=== PATIENT | female | born 1940 | race Caucasian/White ===

== ENCOUNTER 2025-04-15 08:49 | Inpatient (IN) | payer OTHER, MEDICARE, SELFPAY ==
[2025-04-15] VITALS (18 sets, daily range): BP systolic 141–204; BP diastolic 76–121; PULSE 61–84; RESP 16–18; TEMP 36.8–37.1; O2SAT 92–97; BMI 27.1
--- NOTE | 2025-04-15 09:42 | DI.MRI.S_ITS ---
PROCEDURE: MR LUMBAR SPINE WO CON INDICATIONS: lumbar radiculopathy severe pain TECHNIQUE: Noncontrast sagittal T1 spin echo and T2 fast echo, sagittal STIR, and T2 fast spin echo through the lumbar spine. In cases with scoliosis, additional coronal T2 fast spin echo may be performed. COMPARISON: None. FINDINGS: Image quality: Excellent. Alignment and Curvature: Trace anterolisthesis of L4 on L5. Bone Marrow: No lumbar compression fractures. There are bilateral acute or subacute sacral insufficiency fractures with a horizontal S2 component. Suspect possible sacral stenosis just below the level of S1-S2. Spinal Cord: Conus medullaris terminates at the L1-L2 level. Visualized cord demonstrates normal signal and size. Paraspinous Soft Tissues: No paravertebral masses. T12-L1: No canal stenosis or foraminal stenosis. L1-L2: No canal stenosis or foraminal stenosis. L2-L3: Disc bulge. Facet hypertrophy. No canal stenosis or foraminal stenosis. L3-L4: Disc bulge. Facet hypertrophy. No canal stenosis or foraminal stenosis. L4-L5: Trace anterolisthesis. Prominent facet hypertrophy. Moderate canal stenosis. Moderate right foraminal narrowing and mild to moderate left foraminal narrowing. L5-S1: Disc bulge. Facet hypertrophy. No canal stenosis or significant foraminal stenosis. IMPRESSION: 1. Acute or subacute bilateral sacral insufficiency fractures with a horizontal component at the top of S2. 2. There appears to be a degree of sacral canal stenosis just below the level of S1-S2. 3. 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 Dictated by: Juan Antonio Oliva M.D. on 04/15/2025 at 11:02 Approved by: Juan Antonio Oliva M.D. on 04/15/2025 at 11:07
--- NOTE | 2025-04-15 09:47 | ED.BACK ---
HPI - Back Pain/Injury General Chief Complaint: Back Pain/Injury Stated Complaint: Back pain / left hip pain Time Seen by Provider: 04/15/25 09:18 History of Present Illness HPI Narrative: This is an 84-year-old woman who at baseline is healthy independent and ambulates without assistance. Says that she had a fall in early February and over last week or so has been having increasing pain in her low back and left leg. Also having paresthesias in her left leg. No fevers no problems with bowel or bladder control although she says she can not remember when she last had a bowel movement. She has had a visit to urgent care and 2 visits to the [facility] Emergency Department for this. She was discharged from the [facility] Emergency Department this morning and came directly here. The last time she went to would be she came by ambulance, she was brought here by private vehicle by her daughter. I reviewed the notes from the [facility] Emergency Department visit. Patient had a CT of her pelvis that shows osteoarthritis of the right hip and a left hip replacement without apparent complication. She has not been having fevers. She is not immunosuppressed or anticoagulated. Daughter and the patient report that she is at this point immobilized by her pain, unable to get out of bed. Related Data Allergies Allergy/AdvReac Type Severity Reaction Status Date / Time Sulfa (Sulfonamide Allergy Verified 04/15/25 11:28 Antibiotics) Patient History Social History household members: none Exam Initial Vital Signs Initial Vital Signs: Vital Signs Pulse Rate 78 04/15/25 08:55 Pulse Oximetry 94 04/15/25 08:55 vital signs are reviewed, hypertensive Const General: cooperative and No acute distress Other: Unable to sit up independently, complains of significant back pain and leg pain with movement when she is rolled up [facility] Head: normocephalic and atraumatic Cardio Rate: regular rate Rhythm: regular rhythm Heart Sounds: no murmurs Other: Normal sensation to the perineum, normal sphincter tone. Hard stool in the vault does not have a palpable fecal impaction Back/Spine/Pelvis Other: No focal midline tenderness of the thoracic or lumbar spine no step-off some tenderness in the left sacrum. Skin General: no rashes or lesions noted and warm Other: Motor sensation and reflexes are intact in the lower extremities Neuro General: patient alert, patient oriented x3 and moves all extremities Speech: speech normal Extrem Other: Positive straight leg raise, pain with passive range of motion of the left lower extremity Course Orders Ordered: ED Orders 04/15/25 09:42 Consult to Physical Therapy Evaluate & Treat MR lumbar spine wo con Stat 04/15/25 13:25 CBC Auto Diff [Complete Blood Count AUTO DIFF] Stat CMP [Comprehensive Metabolic Panel] Stat Discontinued Medications Acetaminophen (Acetaminophen 325 Mg Tablet) 975 mg PO NOW ONE Stop: 04/15/25 09:43 Last Admin: 04/15/25 09:55 Dose: 975 mg Documented By: MLLobito Reevaluation(s) Reevaluation #1: Discussed findings of the MRI with patient, recommended admission anticipate rehab placement following admission patient is in agreement Consultations Consultation #1: Case discussed with Dr. Tarik Coker, accepts admission Vital Signs Vital signs: Vital Signs - 8 hr 04/15/25 08:55 04/15/25 08:57 04/15/25 08:57 Temperature Pulse Rate 78 77 Respiratory Rate Blood Pressure 203/95 H Pulse Oximetry 94 95 Oxygen Delivery Method 04/15/25 09:00 04/15/25 09:01 04/15/25 09:30 Temperature 98.7 F Pulse Rate 74 80 73 Respiratory Rate 16 Blood Pressure 203/95 H Pulse Oximetry 94 95 94 Oxygen Delivery Method Room Air 04/15/25 10:00 04/15/25 10:01 04/15/25 10:01 Temperature Pulse Rate 84 76 Respiratory Rate Blood Pressure 188/121 H Pulse Oximetry 95 96 Oxygen Delivery Method 04/15/25 10:02 04/15/25 10:02 04/15/25 10:30 Temperature Pulse Rate 69 Respiratory Rate Blood Pressure 188/91 H 179/81 H Pulse Oximetry 96 Oxygen Delivery Method 04/15/25 10:30 04/15/25 11:00 04/15/25 11:01 Temperature Pulse Rate 64 71 Respiratory Rate Blood Pressure 192/86 H Pulse Oximetry 93 94 Oxygen Delivery Method 04/15/25 11:01 04/15/25 11:30 04/15/25 11:30 Temperature Pulse Rate 73 61 Respiratory Rate Blood Pressure 173/76 H Pulse Oximetry 95 92 Oxygen Delivery Method 04/15/25 13:39 04/15/25 13:39 04/15/25 14:00 Temperature Pulse Rate 71 Respiratory Rate Blood Pressure 191/96 H 168/79 H Pulse Oximetry 96 Oxygen Delivery Method 04/15/25 14:00 Temperature Pulse Rate 69 Respiratory Rate Blood Pressure Pulse Oximetry 94 Oxygen Delivery Method MDM - Back Pain/Injury Lab Data Lab results narrative: CBC with diff and CMP are unremarkable 04/15/25 13:25 04/15/25 13:25 Labs: Lab Results 04/15/25 Range/Units 13:25 WBC 7.7 (4.5-11.0) X10^3/uL RBC 4.44 (4.0-5.2) X10^6/uL Hgb 13.1 (12.0-16.0) g/dL Hct 38.2 (36-46) % MCV 86.0 (80-100) fL MCH 29.4 (26-34) PG MCHC 34.2 (30-36) % RDW 12.9 (11.6-14.8) % Plt Count 387 (150-400) X10^3/uL Neut % (Auto) 61.8 (50-75) % Lymph % (Auto) 29.7 (25-40) % Webb % (Auto) 7.0 (3-14) % Eos % (Auto) 0.9 L (2-4) % Baso % (Auto) 0.6 (0-2) % Neut # (Auto) 4800 (9355-8199) /uL Lymph # (Auto) 2300 (3532-5083) /uL Webb # (Auto) 500 (0-900) /uL Eos # (Auto) 100 (0-450) /uL Baso # (Auto) 0 (0-100) /uL Sodium 141 (137-145) mmol/L Potassium 4.0 (3.4-5.1) mmol/L Chloride 107 (98-107) mmol/L Carbon Dioxide 26 (22-32) mmol/L BUN 23 H (7-17) mg/dL Creatinine 0.76 (0.52-1.04) mg/dL Estimated GFR > 60 (>60) mL/min BUN/Creatinine Ratio 30.3 H (6-22) Glucose 82 (70-99) mg/dL Calcium 9.0 (8.4-10.2) mg/dL Total Bilirubin 0.6 (0.2-1.3) mg/dL AST 41 H (14-36) IU/L ALT 23 (<35) IU/L Alkaline Phosphatase 122 (38-126) U/L Total Protein 7.3 (6.3-8.2) g/dL Albumin 4.2 (3.5-5.0) g/dL Globulin 3.1 (1.7-4.1) g/dL Albumin/Globulin Ratio 1.4 (1.0-2.8) Imaging Data Lumbar MRI: Radiologist's Impression: [address] [address] Magnetic Resonance Report Signed Patient: Ana M Gilliland MR#: [id number] : 1940 Acct:[id number] Age/Sex: 84 / F Date of Service: 04/15/25 Loc: ED Accession Number: [id number] Procedure: MR lumbar spine wo con Ordering Provider: Russell Zuniga MD PROCEDURE: MR LUMBAR SPINE WO CON INDICATIONS: lumbar radiculopathy severe pain TECHNIQUE: Noncontrast sagittal T1 spin echo and T2 fast echo, sagittal STIR, and T2 fast spin echo through the lumbar spine. In cases with scoliosis, additional coronal T2 fast spin echo may be performed. COMPARISON: None. FINDINGS: Image quality: Excellent. Alignment and Curvature: Trace anterolisthesis of L4 on L5. Bone Marrow: No lumbar compression fractures. There are bilateral acute or subacute sacral insufficiency fractures with a horizontal S2 component. Suspect possible sacral stenosis just below the level of S1-S2. Spinal Cord: Conus medullaris terminates at the L1-L2 level. Visualized cord demonstrates normal signal and size. Paraspinous Soft Tissues: No paravertebral masses. T12-L1: No canal stenosis or foraminal stenosis. L1-L2: No canal stenosis or foraminal stenosis. L2-L3: Disc bulge. Facet hypertrophy. No canal stenosis or foraminal stenosis. L3-L4: Disc bulge. Facet hypertrophy. No canal stenosis or foraminal stenosis. L4-L5: Trace anterolisthesis. Prominent facet hypertrophy. Moderate canal stenosis. Moderate right foraminal narrowing and mild to moderate left foraminal narrowing. L5-S1: Disc bulge. Facet hypertrophy. No canal stenosis or significant foraminal stenosis. IMPRESSION: 1. Acute or subacute bilateral sacral insufficiency fractures with a horizontal component at the top of S2. 2. There appears to be a degree of sacral canal stenosis just below the level of S1-S2. 3. 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 Dictated by: Juan Antonio Oliva M.D. on 04/15/2025 at 11:02 Approved by: Juan Antonio Oliva M.D. on 04/15/2025 at 11:07 [facility] Narrative Medical decision making narrative: 84-year-old female with a recent ground level fall who has developed low back pain and radicular pain in her left leg since then. She is neurologically intact, does not have cauda equina. Multiple ED visits at another facility and inadequate pain control on arrival here. PT evaluation shows the patient can not walk in fact can not even sit up secondary to severe pain. MRI of the lumbar spine today is remarkable for bilateral sacral insufficiency fractures. Patient will be admitted to the hospitalist service for pain control and anticipate discharge to rehab. Discharge Plan Departure Patient Disposition: Admitted As Inpatient Clinical Impression: Low back pain Qualifiers: Chronicity: acute Back pain laterality: bilateral Sciatica presence: with sciatica Sciatica laterality: sciatica of left side Qualified Code(s): M54.42 - Lumbago with sciatica, left side Bilateral sacral insufficiency fracture Qualifiers: Encounter type: initial encounter Qualified Code(s): M84.48XA - Pathological fracture, other site, initial encounter for fracture
[2025-04-15] MEDS: ACETAMINOPHEN 325 MG TABLET 975 MG PO (09:55)
--- NOTE | 2025-04-15 12:50 | PT.IIE ---
Physical Therapy Inpatient Evaluation/Re-Eval M1 PT/OT-IP Prior Functional Status Start: 04/15/25 12:31 Freq: Status: Active Protocol: Document 04/15/25 12:34 KJ (Rec: 04/15/25 12:50 KJ [id number]) Medical Review Prior Functional Status Medical History Yes Reviewed Mobility and Gait In the past month, the patient has gone from ambulating without an assistive device to using a fww (borrowed from a friend) to being unable to ambulate in the past few days. Prior to a month ago, she ambulated indep without AD. Activities of Daily Prior to a month ago, pt was indep in all ADLs and self Living and IADL's care. Social History Household Members none Living Arrangements House Number of Floors ( One Floor Floors) Home Equipment Front Wheel Walker,Quad Cane Additional Social Sujit lives in [place] Pt has a History Comment boyfriend who is scheduled to have hernia surgery on . M2 PT-IP Current Condition Start: 04/15/25 12:31 Freq: Status: Active Protocol: Document 04/15/25 12:34 KJ (Rec: 04/15/25 12:50 KJ [id number]) Physical Therapy Current Condition Current Condition Evaluation Date 04/15/25 Treatment Diagnosis Impaired mobility Onset Date 03/30/25 M3 PT-IP Subjective Start: 04/15/25 12:31 Freq: Status: Active Protocol: Document 04/15/25 12:34 KJ (Rec: 04/15/25 12:50 KJ [id number]) Subjective Physical Therapy Visit Type Type Initial Evaluation Visit Start Time 11:51 Visit Stop Time 12:29 Notes Discussion with daughter prior to eval while pt was in MRI Physical Therapy Visit Comments Patient Comments Pain has decreased due to pain medication. Daughter states previous to pain medication pt was screaming out every time she moved. Therapy Pain Assessment Pain When Pain Assessed During Mobility Pain Present Pain Present Pain Reported Location Left Lower Back Description Aching Pain Behaviors Facial Grimacing,Wincing Pain Management Re-positioning Techniques M4 PT-IP Mobility and Gait Start: 04/15/25 12:31 Freq: Status: Active Protocol: Document 04/15/25 12:34 KJ (Rec: 04/15/25 12:50 KJ [id number]) PT-Bed Mobility Assessment Rolling Type of Rolling Roll to Right Level of Assist Minimal Assistance Supine to Sit Supine to Sit Maximum Assistance Sit to Supine Sit to Supine Moderate Assistance PT-Transfer Assessment Comments Mobility Comments Pt was unable to maintain upright sitting due to increased pain across the low back. Gait Assessment Comments Gait Comments Pt was unable to ambulate even with assistance and AD. M5 PT-IP Objective Assessments Start: 04/15/25 12:31 Freq: Status: Active Protocol: Document 04/15/25 12:34 KJ (Rec: 04/15/25 12:50 KJ [id number]) Orientation Orientation/Cognition Level of Alertness Alert Orientation Name,Age,Birthday,Month,Date,Year,Day of Week,Place, Situation Language Function No Deficits Noted Ability Memory Description No Deficits Noted Gross Range of Motion Upper Extremity ROM Assessment Within Functional Limits Lower Extremity ROM Assessment Left Impaired Impairments Limited AROM in hips due to pain Strength Upper Extremity Strength Assessment Within Functional Limits Lower Extremity Strength Hip limited due to pain Knee R WFL, L too painful to measure Ankle WFL Comments Strength Comments Pain most significant in passive ext rot L hip Sensation Assessment Comments Sensation Comments Reports numbness and tingling radiating in the LLE M6 PT-IP Treatment Start: 04/15/25 12:31 Freq: Status: Active Protocol: Document 04/15/25 12:34 KJ (Rec: 04/15/25 12:50 KJ [id number]) Physical Therapy Treatment Exercises Exercises Ankle Pumps,Gluteal Sets,Quad Sets Other Treatments Other Treatment Gentle bridging within pain tolerance Performed M7 PT-IP Assessment and Plan Start: 04/15/25 12:31 Freq: Status: Active Protocol: Document 04/15/25 12:34 KJ (Rec: 04/15/25 12:50 KJ [id number]) PT Summary Assessment and Plan Potential Rehabilitation Good Potential Status of Condition Evolving at Evaluation Summary Impairments Pain,ROM,Strength,Bed Mobility,Transfers,Gait Assessment Summary Pt with significant pain even after administration of pain medications, is unable to sit up or care for self at this time. Goals Bed Mobility Goal Independent Transfer Goal Independent Gait Goal Independent Gait Distance 50 Days to Meet Goals 10 Frequency of Treatment Frequency Of Once a Day Treatment Treatment Plan Physical Therapy Bed Mobility Training,Transfer Training,Gait Training, Treatment Plan Therapeutic Exercise Recommendations To Nursing Amount of Assist Mechanical Lift Needed Discharge Recommendations PT Discharge SNF Rehab Recommendations Transportation Needs Stretcher/Ambulance at Discharge
[2025-04-15 13:41] LABS: Add Manual Diff / Slide Review NO; Hematocrit 38.2 % (36-46); Hemoglobin 13.1 g/dL (12.0-16.0); Lymphocytes Absolute Auto 2300 /uL (1100-4500); Mean Corpuscular HGB Conc 34.2 % (30-36); Mean Corpuscular Hemoglobin 29.4 PG (26-34); Mean Corpuscular Volume 86.0 fL (80-100); Platelet Count 387 X10^3/uL (150-400)
[2025-04-15 13:53] LABS: Alanine Aminotransferase 23 IU/L (<35); Albumin 4.2 g/dL (3.5-5.0); Albumin Globulin Ratio 1.4 (1.0-2.8); Alkaline Phosphatase 122 U/L (38-126); Blood Urea Nitrogen 23 mg/dL (7-17); Calcium 9.0 mg/dL (8.4-10.2); Carbon Dioxide 26 mmol/L (22-32); Chloride 107 mmol/L (98-107); Estimated Glomerular Filt Rate > 60 mL/min (>60); Globulin 3.1 g/dL (1.7-4.1); Glucose 82 mg/dL (70-99); HEMOLYSIS < 15 (0-50); Potassium 4.0 mmol/L (3.4-5.1); Sodium 141 mmol/L (137-145); Total Protein 7.3 g/dL (6.3-8.2)
--- NOTE | 2025-04-15 15:09 | PM.HP.1 ---
History of Present Illness History of Present Illness Chief complaint: Back pain / left hip pain Narrative: The patient was a pleasant 84-year-old female who a fall about a month ago with hip pain. This improved over the next several days. She was had lower back pain and some left leg symptoms for the last week to 10 days. This is resulted in multiple visits to the urgent care and emergency department at [facility]. She would normal x-rays and CT scan of the pelvis there. She escalated in terms of her pain medications over sequential visits from hydrocodone up to oxycodone with the addition recently of dexamethasone and a lidocaine patch. For her 3rd ER visit for pain which he would become intractable let her to be essentially bed-bound her daughter is visiting from [place]. She was brought by ambulance to would be, treated with IV medication, and discharged. Her out her daughter drove her to this hospital. ED course: MRI of the LS spine was obtained which revealed sacral insufficiency fracture. [facility] Social History household members: none Smoking Status: Never smoker alcohol intake: current Meds Home Medications and Allergies Home Medications ?Medication ?Instructions ?Recorded ?Confirmed ?Type C 250 mg-E 90 mg-zinc 40 mg-copper 1 cap PO .qday 04/15/25 04/15/25 History 1 mg-lutein 5 [id number] capsule (PreserVision AREDS 2 CO Q-10) acetaminophen 325 mg capsule 650 mg PO Q6H PRN pain 04/15/25 04/15/25 History dexamethasone 2 mg tablet 2 mg PO DAILY 04/15/25 04/15/25 History lidocaine 5 % topical patch 1 patch topical DAILY 04/15/25 04/15/25 History meloxicam 7.5 mg tablet 7.5 mg PO BID 04/15/25 04/15/25 History oxycodone 5 mg tablet 5 mg PO 4XD PRN pain 04/15/25 04/15/25 History Allergies Allergy/AdvReac Type Severity Reaction Status Date / Time Sulfa (Sulfonamide Allergy Verified 04/15/25 11:28 Antibiotics) Review of Systems Review of Systems Narrative: All else reviewed and otherwise unremarkable except as noted in the history and physical. Constipated for 5 days, poor appetite. Exam Vital Signs (past 8 hours): - 04/15/25 08:55 04/15/25 08:57 04/15/25 08:57 Temperature Pulse Rate 78 77 Respiratory Rate Blood Pressure 203/95 H Pulse Oximetry 94 95 Oxygen Delivery Method 04/15/25 09:00 04/15/25 09:01 04/15/25 09:30 Temperature 98.7 F Pulse Rate 74 80 73 Respiratory Rate 16 Blood Pressure 203/95 H Pulse Oximetry 94 95 94 Oxygen Delivery Method Room Air 04/15/25 10:00 04/15/25 10:01 04/15/25 10:01 Temperature Pulse Rate 84 76 Respiratory Rate Blood Pressure 188/121 H Pulse Oximetry 95 96 Oxygen Delivery Method 04/15/25 10:02 04/15/25 10:02 04/15/25 10:30 Temperature Pulse Rate 69 Respiratory Rate Blood Pressure 188/91 H 179/81 H Pulse Oximetry 96 Oxygen Delivery Method 04/15/25 10:30 04/15/25 11:00 04/15/25 11:01 Temperature Pulse Rate 64 71 Respiratory Rate Blood Pressure 192/86 H Pulse Oximetry 93 94 Oxygen Delivery Method 04/15/25 11:01 04/15/25 11:30 04/15/25 11:30 Temperature Pulse Rate 73 61 Respiratory Rate Blood Pressure 173/76 H Pulse Oximetry 95 92 Oxygen Delivery Method 04/15/25 13:39 04/15/25 13:39 04/15/25 14:00 Temperature Pulse Rate 71 Respiratory Rate Blood Pressure 191/96 H 168/79 H Pulse Oximetry 96 Oxygen Delivery Method 04/15/25 14:00 04/15/25 14:30 04/15/25 14:30 Temperature Pulse Rate 69 72 Respiratory Rate Blood Pressure 204/88 H Pulse Oximetry 94 96 Oxygen Delivery Method 04/15/25 15:00 04/15/25 15:00 Temperature Pulse Rate 74 Respiratory Rate Blood Pressure 167/81 H Pulse Oximetry 95 Oxygen Delivery Method Oxygen Delivery Method Room Air Narrative Exam Narrative: NAD, alert and oriented, fluent speech, calm. Normocephalic skull, EOMI, anicteric sclera, symmetric pupils. Oropharynx unremarkable, no droop. Neck supple, midline trachea, no adenopathy. Lungs clear, normal rate and effort. Heart regular, no murmur gallop or rub. Abdomen is soft, non distended and non tender. Extremities are free of edema. Skin is free of rash or lesions. Joints are not swollen or deformed. Judgment appears to be normal. Left leg is normal motor strength was regard to plantar and dorsiflexion as well as extension of the knee. Objective Imaging MRI LS Spine: : Radiologist's impression: Alignment and Curvature: Trace anterolisthesis of L4 on L5. Bone Marrow: No lumbar compression fractures. There are bilateral acute or subacute sacral insufficiency fractures with a horizontal S2 component. Suspect possible sacral stenosis just below the level of S1-S2. Spinal Cord: Conus medullaris terminates at the L1-L2 level. Visualized cord demonstrates normal signal and size. Paraspinous Soft Tissues: No paravertebral masses. T12-L1: No canal stenosis or foraminal stenosis. L1-L2: No canal stenosis or foraminal stenosis. L2-L3: Disc bulge. Facet hypertrophy. No canal stenosis or foraminal stenosis. L3-L4: Disc bulge. Facet hypertrophy. No canal stenosis or foraminal stenosis. L4-L5: Trace anterolisthesis. Prominent facet hypertrophy. Moderate canal stenosis. Moderate right foraminal narrowing and mild to moderate left foraminal narrowing. L5-S1: Disc bulge. Facet hypertrophy. No canal stenosis or significant foraminal stenosis. IMPRESSION: 1. Acute or subacute bilateral sacral insufficiency fractures with a horizontal component at the top of S2. 2. There appears to be a degree of sacral canal stenosis just below the level of S1-S2. 3. 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 Labs 04/15/25 13:25 04/15/25 13:25 Labs: Laboratory Results - last 24 hr 04/15/25 13:25 WBC 7.7 RBC 4.44 Hgb 13.1 Hct 38.2 MCV 86.0 MCH 29.4 MCHC 34.2 RDW 12.9 Plt Count 387 Neut % (Auto) 61.8 Lymph % (Auto) 29.7 [place] % (Auto) 7.0 Eos % (Auto) 0.9 L Baso % (Auto) 0.6 Neut # (Auto) 4800 Lymph # (Auto) 2300 [place] # (Auto) 500 Eos # (Auto) 100 Baso # (Auto) 0 Sodium 141 Potassium 4.0 Chloride 107 Carbon Dioxide 26 BUN 23 H Creatinine 0.76 Estimated GFR > 60 BUN/Creatinine Ratio 30.3 H Glucose 82 Calcium 9.0 Total Bilirubin 0.6 AST 41 H ALT 23 Alkaline Phosphatase 122 Total Protein 7.3 Albumin 4.2 Globulin 3.1 Albumin/Globulin Ratio 1.4 Assessment & Plan Assessment & Plan narrative: 1. Sacral fractures, active. 2. Osteoporosis, active. PLAN: -Pain control with oxy, IV dilaudid, and lidocaine patch. -continue dexamethasone. Anticipate SNF for rehab. Anticipate 2 MN in the hospital, supports inpatient status. Daughter is proxy decision maker. Full resuscitation, confirmed today. Time-Based Coding :: 35 min spent with patient and on the chart (including review of chart, obtaining history, exam, reviewing outside data, placing orders, documenting exam and treatment plan, and counseling patient) on 04/15. Quality MIPS - Admit I confirm the patient?s Advance Care Plan is present, Code status is documented, Surrogate decision maker is in patient?s record [If Yes, STOP here]: Yes MIPS - Meds 'Current medications' to include all prescriptions, [id number] products, herbals, cannabis/cannabidiol products, and vitamin/mineral/dietary (nutritional) supplements. I have utilized all available resources to obtain, update, or review the patient?s current medications. [If Yes, STOP here]: Yes
[2025-04-16 05:32] LABS: Add Manual Diff / Slide Review NO; Hematocrit 36.3 % (36-46); Hemoglobin 12.4 g/dL (12.0-16.0); Lymphocytes Absolute Auto 2100 /uL (1100-4500); Mean Corpuscular HGB Conc 34.1 % (30-36); Mean Corpuscular Hemoglobin 29.5 PG (26-34); Mean Corpuscular Volume 86.4 fL (80-100); Platelet Count 341 X10^3/uL (150-400)
[2025-04-16 05:39] LABS: Blood Urea Nitrogen 22 mg/dL (7-17); Calcium 8.7 mg/dL (8.4-10.2); Carbon Dioxide 26 mmol/L (22-32); Chloride 108 mmol/L (98-107); Estimated Glomerular Filt Rate > 60 mL/min (>60); Glucose 82 mg/dL (70-99); HEMOLYSIS < 15 (0-50); Potassium 4.3 mmol/L (3.4-5.1); Sodium 139 mmol/L (137-145)
--- NOTE | 2025-04-16 07:41 | PM.PN.1 ---
Subjective Subjective Interval history: 04/15: Admitted with sacral fractures and severe pain. S: Pain is reasonably well-controlled while in bed with her oral pain medications. She did some bed exercises with physical therapy but really can not stand up due to escalation of pain. She can move her legs bilaterally and denies any discernible weakness. Exam Vital Signs (past 8 hours): Oxygen Delivery Method Room Air Oxygen Flow Rate 0 Narrative Exam Narrative: NAD, alert and oriented. Fluent speech. Lungs are clear, normal rate and effort. Heart is regular, no murmur gallop or rub. Abdomen is soft, non distended. Extremities are free of edema. Objective Labs 04/16/25 04:46 04/16/25 04:46 Labs: Laboratory Results - last 24 hr 04/15/25 04/16/25 13:25 04:46 WBC 7.7 7.4 RBC 4.44 4.21 Hgb 13.1 12.4 Hct 38.2 36.3 MCV 86.0 86.4 MCH 29.4 29.5 MCHC 34.2 34.1 RDW 12.9 12.5 Plt Count 387 341 Neut % (Auto) 61.8 59.4 Lymph % (Auto) 29.7 28.5 [place] % (Auto) 7.0 7.0 Eos % (Auto) 0.9 L 4.2 H Baso % (Auto) 0.6 0.9 Neut # (Auto) 4800 4400 Lymph # (Auto) 2300 2100 [place] # (Auto) 500 500 Eos # (Auto) 100 300 Baso # (Auto) 0 100 Sodium 141 139 Potassium 4.0 4.3 Chloride 107 108 H Carbon Dioxide 26 26 BUN 23 H 22 H Creatinine 0.76 0.72 Estimated GFR > 60 > 60 BUN/Creatinine Ratio 30.3 H 30.6 H Glucose 82 82 Calcium 9.0 8.7 Total Bilirubin 0.6 AST 41 H ALT 23 Alkaline Phosphatase 122 Total Protein 7.3 Albumin 4.2 Globulin 3.1 Albumin/[facility] 1.4 [facility] Social History household members: none Smoking Status: Never smoker alcohol intake: current Assessment & Plan Assessment & Plan narrative: 1. Sacral fractures, active. 2. Osteoporosis, active. PLAN: -Pain control with oxy, IV dilaudid, and lidocaine patch. -continue dexamethasone. -continue physical therapy and anticipate senior living facility as neck site. The pediatric social worker has been contacted and we will be working with the patient on her preferences for site. Anticipate SNF for rehab. Anticipate 2 [place] in the hospital, supports inpatient status. Daughter is proxy decision maker. Full resuscitation, confirmed today. Time-Based Coding :: [TOTAL MINUTES] spent with patient and on the chart (including review of chart, obtaining history, exam, reviewing outside data, placing orders, documenting exam and treatment plan, and counseling patient) on [DATE].
[2025-04-16 08:00] VITALS: BP 147/83; PULSE 74; RESP 17; TEMP 36.9; O2SAT 93
[2025-04-16] MEDS: LIDOCAINE 5% PATCH 1 EACH TOP (08:17)
--- NOTE | 2025-04-16 10:45 | PT.IPTN ---
Current Diagnoses Other osteoporosis with current pathological fracture, other site, initial encounter for fracture (04/15/25) Physical Therapy Treatment Note M2 PT-IP Current Condition Start: 04/15/25 12:31 Freq: Status: Active Protocol: Document 04/15/25 12:34 KJ (Rec: 04/15/25 12:50 KJ [id number]) Physical Therapy Current Condition Current Condition Evaluation Date 04/15/25 Treatment Diagnosis Impaired mobility Onset Date 03/30/25 M3 PT-IP Subjective Start: 04/15/25 12:31 Freq: Status: Active Protocol: Document 04/16/25 10:41 KJ (Rec: 04/16/25 10:45 KJ [id number]) Subjective Physical Therapy Visit Type Type Treatment Note Visit Start Time 08:41 Visit Stop Time 09:11 Physical Therapy Visit Comments Patient Comments slept well, still has a lot of pain but meds are helping Therapy Pain Assessment Pain When Pain Assessed At Rest Pain Present Pain Present Pain Reported Location Left Lower Back Pain Management Modification of Treatment Techniques M4 PT-IP Mobility and Gait Start: 04/15/25 12:31 Freq: Status: Active Protocol: Document 04/16/25 10:41 KJ (Rec: 04/16/25 10:45 KJ [id number]) PT-Bed Mobility Assessment Rolling Type of Rolling Log Rolling Level of Assist Maximal Assistance M5 PT-IP Objective Assessments Start: 04/15/25 12:31 Freq: Status: Active Protocol: Document 04/15/25 12:34 KJ (Rec: 04/15/25 12:50 KJ [id number]) Orientation Orientation/Cognition Level of Alertness Alert Orientation Name,Age,Birthday,Month,Date,Year,Day of Week,Place, Situation Language Function No Deficits Noted Ability Memory Description No Deficits Noted Gross Range of Motion Upper Extremity ROM Assessment Within Functional Limits Lower Extremity ROM Assessment Left Impaired Impairments Limited AROM in hips due to pain Strength Upper Extremity Strength Assessment Within Functional Limits Lower Extremity Strength Hip limited due to pain Knee R WFL, L too painful to measure Ankle WFL Comments Strength Comments Pain most significant in passive ext rot L hip Sensation Assessment Comments Sensation Comments Reports numbness and tingling radiating in the LLE M6 PT-IP Treatment Start: 04/15/25 12:31 Freq: Status: Active Protocol: Document 04/16/25 10:41 KJ (Rec: 09/18/25 10:45 KJ [id number]) Physical Therapy Treatment Exercises Exercises Ankle Pumps,Gluteal Sets,Quad Sets Other Treatments Other Treatment Instructed pt on bridging, post pelvic tilt in supine. Performed Pt required verbal and physical cuing. Pt had difficult performing a pelvic tilt, she was anticipating pain. M7 PT-IP Assessment and Plan Start: 04/15/25 12:31 Freq: Status: Active Protocol: Document 04/16/25 10:41 KJ (Rec: 04/16/25 10:45 KJ [id number]) PT Summary Assessment and Plan Potential Rehabilitation Good Potential Status of Condition Evolving at Evaluation Summary Impairments Pain Progress Towards Slow Progress due to Pain Goals Treatment Plan Physical Therapy Bed Mobility Training,Transfer Training,Gait Training, Treatment Plan Therapeutic Exercise Other Continue trunk stabilization exercise, progress to Recommendations and single leg raise while maintaining post pelvic tilt. Next Treatment Focus Progress to transfer training when pain is controlled. Recommendations To Nursing Amount of Assist Mechanical Lift Needed Discharge Recommendations PT Discharge SNF Rehab Recommendations
--- NOTE | 2025-04-16 12:06 | CM.DANOTE ---
Initial DCP Assessment Visit Note Reviewed EMR and team rounds for pt's medical status and updates. Pt lives independently at baseline in her own home in [place]. She has a local, supportive dtr, Cinthya, who is very involved in her care and healthcare coordination needs. SNF rehab is recommended for d/c, preference is [facility]. Sent referral for their review. Pending response. Payor: Medicare PCP: charlesanuj [facility] providers Pt is a 84 year-old F who presents to the ED with complaints of severe/worsening pain in her lower back and L-leg. She had a GLF in early February resulting in the start of this pain. CT imaging done at [facility] was negative for any fractures at that time. She's had 2-more ED visits in relation to this pain since she was discharged from the [facility] ED, and now returns to the ED for what she and her dtr describe as immobilizing pain. Pt is unable to tolerate standing/walking/sitting upright in bed without experiencing acute and debilitating pain. MR of the lumbar spine was positive for bilateral sacral fractures. Plan was made to admit for pain control, therapies, and d/c to SNF Rehab at time of d/c. DCP will continue to follow and assist with this transition and referral/coordination with SNF placement. Discharge Planning/Care Management Advanced directive, confirm from FAMILY Start: 04/15/25 16:22 Freq: Q24H Status: Active Protocol: Document 04/15/25 16:22 CEW (Rec: 04/15/25 17:50 CEW [id number]) Advance Directive, confirm on record Time 16:00 Person contacted Patient and dtr Copy received No CM Discharge Assessment Start: 04/15/25 15:11 Freq: Status: Active Protocol: Document 04/16/25 12:03 DPL (Rec: 04/16/25 12:05 DPL [id number]) Discharge Planning Assessment Assigned Discharge DANIEL Luciano Parking Officer Insurance Medicare Advance Directives? Yes Advance Directives No on File History Provided By Family Member,Medical Record Has Patient been No admitted in last 30 days? Prior Living House Arrangements Household Members none Type of Drives own vehicle transporation used prior to admit Independent with ADL Yes 's Is patient alert and Yes oriented? Caregiver for No Another Comment N/A Comment No AD Patient/Family [facility] Facility Preference Barriers to No Discharge Discharge Plan [facility] Facility Transportation Facility Arrangement Referrals Initiated [facility] If patient plan is Yes SNF: Has PASSR been completed? Medicare Choice List Yes Provided Medicare choice list family reviewed on electronic tablet with SNF/HH Preference [facility] Has Agency SNF been Yes contacted Whiteboard Updated Yes in Patient Room with name and ext. # of Manager Of Merchandising Review Status In Process Please Provide Date 04/16/25 Initial DC Assessment Was Performed
--- NOTE | 2025-04-16 16:34 | PT.IPTN ---
Current Diagnoses Other osteoporosis with current pathological fracture, other site, initial encounter for fracture (04/15/25) Physical Therapy Treatment Note M2 PT-IP Current Condition Start: 04/15/25 12:31 Freq: Status: Active Protocol: Document 04/15/25 12:34 KJ (Rec: 04/15/25 12:50 KJ [id number]) Physical Therapy Current Condition Current Condition Evaluation Date 04/15/25 Treatment Diagnosis Impaired mobility Onset Date 03/30/25 M3 PT-IP Subjective Start: 04/15/25 12:31 Freq: Status: Active Protocol: Document 04/16/25 10:41 KJ (Rec: 04/16/25 10:45 KJ [id number]) Subjective Physical Therapy Visit Type Type Treatment Note Visit Start Time 08:41 Visit Stop Time 09:11 Physical Therapy Visit Comments Patient Comments slept well, still has a lot of pain but meds are helping Therapy Pain Assessment Pain When Pain Assessed At Rest Pain Present Pain Present Pain Reported Location Left Lower Back Pain Management Modification of Treatment Techniques M4 PT-IP Mobility and Gait Start: 04/15/25 12:31 Freq: Status: Active Protocol: Document 04/16/25 10:41 KJ (Rec: 04/16/25 10:45 KJ [id number]) PT-Bed Mobility Assessment Rolling Type of Rolling Log Rolling Level of Assist Maximal Assistance M5 PT-IP Objective Assessments Start: 04/15/25 12:31 Freq: Status: Active Protocol: Document 04/15/25 12:34 KJ (Rec: 04/15/25 12:50 KJ [id number]) Orientation Orientation/Cognition Level of Alertness Alert Orientation Name,Age,Birthday,Month,Date,Year,Day of Week,Place, Situation Language Function No Deficits Noted Ability Memory Description No Deficits Noted Gross Range of Motion Upper Extremity ROM Assessment Within Functional Limits Lower Extremity ROM Assessment Left Impaired Impairments Limited AROM in hips due to pain Strength Upper Extremity Strength Assessment Within Functional Limits Lower Extremity Strength Hip limited due to pain Knee R WFL, L too painful to measure Ankle WFL Comments Strength Comments Pain most significant in passive ext rot L hip Sensation Assessment Comments Sensation Comments Reports numbness and tingling radiating in the LLE M6 PT-IP Treatment Start: 04/15/25 12:31 Freq: Status: Active Protocol: Document 04/16/25 16:32 KJ (Rec: 04/16/25 16:34 KJ [id number]) Physical Therapy Treatment Exercises Exercises Quad Sets Other Treatments Other Treatment post pelvic tilt, bridging Performed M7 PT-IP Assessment and Plan Start: 04/15/25 12:31 Freq: Status: Active Protocol: Document 04/16/25 16:32 KJ (Rec: 04/16/25 16:34 KJ [id number]) PT Summary Assessment and Plan Potential Status of Condition Evolving at Evaluation Summary Impairments Pain Assessment Summary Pt still with significant pain impairing her ability to mobilize. Treatment Plan Physical Therapy Bed Mobility Training,Transfer Training,Gait Training, Treatment Plan Therapeutic Exercise Other Review log rolling, supine to sit. Progress to Recommendations and transfers if pt is able. Next Treatment Focus Recommendations To Nursing Amount of Assist Mechanical Lift Needed Discharge Recommendations PT Discharge SNF Rehab Recommendations
[2025-04-16 20:00] VITALS: BP 160/80; PULSE 73; RESP 18; TEMP 36.6; O2SAT 95
[2025-04-16] MEDS: BISACODYL 10 MG SUPP PR (21:09)
[2025-04-16] MEDS: REMOVE LIDOCAINE PATCH 1 EACH TOP (23:07)
[2025-04-16] MEDS: FLEETS ENEMA 1 EACH PR (23:07)
[2025-04-16] MEDS: ACETAMINOPHEN 325 MG TABLET 650 MG PO (23:15)
[2025-04-17 06:39] LABS: Add Manual Diff / Slide Review NO; Hematocrit 40.0 % (36-46); Hemoglobin 13.7 g/dL (12.0-16.0); Lymphocytes Absolute Auto 1600 /uL (1100-4500); Mean Corpuscular HGB Conc 34.3 % (30-36); Mean Corpuscular Hemoglobin 29.6 PG (26-34); Mean Corpuscular Volume 86.4 fL (80-100); Platelet Count 397 X10^3/uL (150-400)
[2025-04-17 06:57] LABS: Blood Urea Nitrogen 19 mg/dL (7-17); Calcium 9.2 mg/dL (8.4-10.2); Carbon Dioxide 25 mmol/L (22-32); Chloride 103 mmol/L (98-107); Estimated Glomerular Filt Rate > 60 mL/min (>60); Glucose 109 mg/dL (70-99); HEMOLYSIS 29 (0-50); Potassium 4.3 mmol/L (3.4-5.1); Sodium 137 mmol/L (137-145)
[2025-04-17 07:29] VITALS: BP 104/64; PULSE 71; RESP 17; TEMP 36.5; O2SAT 98
--- NOTE | 2025-04-17 07:33 | P.PN_ITS ---
Subjective Subjective Interval history: Summary: She was admitted for intractable pain and inability to stand due to bilateral sacral insufficiency fractures. She lives at home, independent. A daughter lives in [place]. She needs SNF for care and rehab. S: Pain is mildly improved. No nausea or dyspnea. Exam Vital Signs (past 8 hours): - 04/17/25 07:29 Temperature 97.7 F Pulse Rate 71 Respiratory Rate 17 Blood Pressure 104/64 Pulse Oximetry 98 Oxygen Flow Rate 0 Oxygen Delivery Method Room Air Oxygen Flow Rate 0 Narrative Exam Narrative: NAD, alert and oriented. Fluent speech. Lungs are clear, normal rate and effort. Heart is regular, no murmur gallop or rub. Abdomen is soft, non distended. Extremities are free of edema. Pain increases with movement of her legs. Objective Imaging LS Spine MR: : Radiologist's impression: 1. Acute or subacute bilateral sacral insufficiency fractures with a horizontal component at the top of S2. 2. There appears to be a degree of sacral canal stenosis just below the level of S1-S2. 3. 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 Labs 04/17/25 06:27 04/17/25 06:27 Labs: Laboratory Results - last 24 hr 04/17/25 06:27 WBC 10.2 RBC 4.62 Hgb 13.7 Hct 40.0 MCV 86.4 MCH 29.6 MCHC 34.3 RDW 12.5 Plt Count 397 Neut % (Auto) 75.5 H Lymph % (Auto) 16.1 L [place] % (Auto) 7.2 Eos % (Auto) 0.9 L Baso % (Auto) 0.3 Neut # (Auto) 7700 H Lymph # (Auto) 1600 [place] # (Auto) 700 Eos # (Auto) 100 Baso # (Auto) 0 Sodium 137 Potassium 4.3 Chloride 103 Carbon Dioxide 25 BUN 19 H Creatinine 0.66 Estimated GFR > 60 BUN/Creatinine Ratio 28.8 H Glucose 109 H Calcium 9.2 PFSH Social History household members: none Smoking Status: Never smoker alcohol intake: current Assessment & Plan Assessment & Plan narrative: 1. Sacral fractures, active. 2. Osteoporosis, active. PLAN: -Pain control with oxy, IV dilaudid, and lidocaine patch. -continue dexamethasone. Stop in the next 2-3 days. -continue physical therapy and anticipate nursing home facility as neck site. The outreach and education social worker has been contacted and we will be working with the patient on her preferences for site. Anticipate SNF for rehab. Waiting for [facility]. Anticipate 2 [place] in the hospital, supports inpatient status. Daughter is proxy decision maker. Full resuscitation, confirmed today. Time-Based Coding :: [TOTAL MINUTES] spent with patient and on the chart (including review of chart, obtaining history, exam, reviewing outside data, placing orders, documenting exam and treatment plan, and counseling patient) on [DATE].
[2025-04-17] MEDS: BISACODYL 10 MG SUPP PR (08:15)
[2025-04-17] MEDS: LIDOCAINE 5% PATCH 1 EACH TOP (09:39)
--- NOTE | 2025-04-17 11:01 | CM.DPC ---
DCP Cont. Recieved call from [facility], she does not anticipate having a bed available until possibly early next week. Sent a referral for [facility] to review. Pending response.
--- NOTE | 2025-04-17 11:30 | PT.IPTN ---
Current Diagnoses Other osteoporosis with current pathological fracture, other site, initial encounter for fracture (04/15/25) Physical Therapy Treatment Note M2 PT-IP Current Condition Start: 04/15/25 12:31 Freq: Status: Active Protocol: Document 04/15/25 12:34 KJ (Rec: 04/15/25 12:50 KJ [id number]) Physical Therapy Current Condition Current Condition Evaluation Date 04/15/25 Treatment Diagnosis Impaired mobility Onset Date 03/30/25 M3 PT-IP Subjective Start: 04/15/25 12:31 Freq: Status: Active Protocol: Document 04/17/25 11:30 AB (Rec: 04/17/25 12:45 AB [id number]) Subjective Physical Therapy Visit Type Type Treatment Note Visit Start Time 11:30 Visit Stop Time 12:30 Number of RUBBER MOLDER Visits 0 Physical Therapy Visit Comments Patient Comments c/o increase pain and wants pain meds Therapy Pain Assessment Pain When Pain Assessed At Rest Pain Present Pain Present Pain Reported Location Left Lower Back Scale Used increases with mobility; pain scale nto stated Pain Behaviors Facial Grimacing,Guarding,Wincing Pain Management Apply Cold,Distraction,Modification of Treatment,Re- Techniques positioning,Timing of Activity with Medications M4 PT-IP Mobility and Gait Start: 04/15/25 12:31 Freq: Status: Active Protocol: Document 04/17/25 11:30 AB (Rec: 04/17/25 12:45 AB [id number]) PT-Bed Mobility Assessment Rolling Type of Rolling Log Rolling Level of Assist Maximal Assistance,1 Person Assistance Supine to Sit Supine to Sit Maximum Assistance,1 Person Assistance,2 Person Assistance Scooting Scooting to Edge of Maximum Assistance Bed PT-Transfer Assessment Sit to and From Stand Sit to and from Maximum Assistance,1 Person Assistance,2 Person Stand Assistance,Use of Upper Extremities Equipment Transfer Assistive Gait Belt,Front Wheeled Walker Device Orthotic/Prosthetic No Devices or Brace: Transfers Transfer Destination Chair Transfer Technique Stand Step Pivot Transfer Ability Level of Assist Maximum Assistance,2 Person Assistance,Use of Upper Extremities Comments Mobility Comments pt in bed and daughter in room. pt c/o increase L hip pain and wants pain meds first. Pt also needing to be cleaned up. informed nurse. pt completed rolling L<>R max A and max cues for hygiene care and brief management. pt completed log roll supine to sit max A x 1-2 and max cues. increase posterior trunk leaning in sitting requiring max A for scooting to EOB. sit to stand max A x 1-2 and max cues and step transfer to chair using FWW max A x 2 and max cues. positioned pt on the chair and set up for lunch. pt only able to sit on the chair for a few minutes and c/o increase LBP and L LE numbness. repositioned pt but still c/o increase pain. pt unable to tolerate sitting on the chair. Daughter requested for pt to go back to bed. informed nurse to transfer pt using mechanical lift. M5 PT-IP Objective Assessments Start: 04/15/25 12:31 Freq: Status: Active Protocol: Document 04/15/25 12:34 KJ (Rec: 04/15/25 12:50 KJ [id number]) Orientation Orientation/Cognition Level of Alertness Alert Orientation Name,Age,Birthday,Month,Date,Year,Day of Week,Place, Situation Language Function No Deficits Noted Ability Memory Description No Deficits Noted Gross Range of Motion Upper Extremity ROM Assessment Within Functional Limits Lower Extremity ROM Assessment Left Impaired Impairments Limited AROM in hips due to pain Strength Upper Extremity Strength Assessment Within Functional Limits Lower Extremity Strength Hip limited due to pain Knee R WFL, L too painful to measure Ankle WFL Comments Strength Comments Pain most significant in passive ext rot L hip Sensation Assessment Comments Sensation Comments Reports numbness and tingling radiating in the LLE M6 PT-IP Treatment Start: 04/15/25 12:31 Freq: Status: Active Protocol: Document 04/17/25 11:30 AB (Rec: 04/17/25 12:45 AB [id number]) Physical Therapy Treatment Education Education Provided Precautions,Safety M7 PT-IP Assessment and Plan Start: 04/15/25 12:31 Freq: Status: Active Protocol: Document 04/17/25 11:30 AB (Rec: 04/17/25 12:45 AB [id number]) PT Summary Assessment and Plan Potential Rehabilitation Fair Potential Summary Impairments Pain,ROM,Strength,Balance,Coordination,Sensation,Tone, Cognition,Bed Mobility,Transfers,Gait,Activity Tolerance Progress Towards Slow Progress due to Pain,Slow Progress due to Activity Goals Tolerance,Slow Progress - Other Assessment Summary pt continues to c/o increase LBP L>R and also c/o L hip pain. pt required max A x 2 for transfers using FWW and was able to take a few steps to transfer max A x 2 but pt unable to tolerate sitting on chair and requested to go back to bed after a few minutes of sitting on the chair. pt will benefit from SNF rehab to improve strength and function. Goals Bed Mobility Goal Minimal Assistance Transfer Goal Minimal Assistance,Front Wheeled Walker Gait Goal Minimal Assistance,Front Wheel Walker Gait Distance 50 Days to Meet Goals 10 Frequency of Treatment Frequency Of Once a Day Treatment Treatment Plan Physical Therapy Bed Mobility Training,Transfer Training,Gait Training, Treatment Plan Therapeutic Exercise,Balance Retraining,Discharge Planning,Hot or Cold Pack,Neuromuscular Re-ed, Coordination Retraining,Manual Therapy Precautions Lumbar Precautions Log Roll,No Twisting,Limit Bending Recommendations To Nursing Amount of Assist Mechanical Lift Needed Discharge Recommendations PT Discharge SNF Rehab Recommendations Transportation Needs Stretcher/Ambulance at Discharge - PT assist 2
[2025-04-17] MEDS: ENOXAPARIN 40 MG/0.4 ML SYRINGE SUBCUT (14:26)
[2025-04-17 19:00] VITALS: BP 162/88; PULSE 68; RESP 18; TEMP 37; O2SAT 96
[2025-04-17] MEDS: SODIUM CHLORIDE 0.9% FLUSH 10 ML IV (22:10)
[2025-04-18 07:00] VITALS: BP 134/87; PULSE 93; RESP 18; TEMP 36.3; O2SAT 97
[2025-04-18] MEDS: ENOXAPARIN 40 MG/0.4 ML SYRINGE SUBCUT (08:39)
[2025-04-18] MEDS: LIDOCAINE 5% PATCH 1 EACH TOP (08:40)
[2025-04-18] MEDS: SODIUM CHLORIDE 0.9% FLUSH 10 ML IV ×2 (08:49→20:40)
--- NOTE | 2025-04-18 10:20 | PT.IPTN ---
Current Diagnoses Other osteoporosis with current pathological fracture, other site, initial encounter for fracture (04/15/25) Physical Therapy Treatment Note M2 PT-IP Current Condition Start: 04/15/25 12:31 Freq: Status: Active Protocol: Document 04/15/25 12:34 KJ (Rec: 04/15/25 12:50 KJ [id number]) Physical Therapy Current Condition Current Condition Evaluation Date 04/15/25 Treatment Diagnosis Impaired mobility Onset Date 03/30/25 M3 PT-IP Subjective Start: 04/15/25 12:31 Freq: Status: Active Protocol: Document 04/18/25 10:20 AB (Rec: 04/18/25 11:11 AB Desktop) Subjective Physical Therapy Visit Type Type Treatment Note Visit Start Time 10:20 Visit Stop Time 11:00 Number of COMPUTER TESTER Visits 0 Therapy Pain Assessment Pain When Pain Assessed At Rest Pain Present Pain Present Pain Reported Location Left Hip Scale Used increases with mobility Pain Behaviors Calling Out,Facial Grimacing,Guarding,Moaning, Restlessness,Wincing Pain Management Distraction,Modification of Treatment,Re-positioning, Techniques Timing of Activity with Medications Left Lower Back Scale Used increases with mobility Pain Behaviors Calling Out,Facial Grimacing,Guarding,Moaning, Restlessness,Wincing Pain Management Modification of Treatment,Re-positioning,Timing of Techniques Activity with Medications M4 PT-IP Mobility and Gait Start: 04/15/25 12:31 Freq: Status: Active Protocol: Document 04/18/25 10:20 AB (Rec: 04/18/25 11:11 AB Desktop) PT-Bed Mobility Assessment Rolling Type of Rolling Log Rolling Level of Assist Maximal Assistance Supine to Sit Supine to Sit Maximum Assistance,1 Person Assistance,2 Person Assistance Scooting Scooting to Edge of Dependent Bed PT-Transfer Assessment Sit to and From Stand Sit to and from Maximum Assistance,1 Person Assistance,2 Person Stand Assistance,Use of Upper Extremities Equipment Transfer Assistive Bed Rail,Front Wheeled Walker Device Orthotic/Prosthetic No Devices or Brace: Transfers Transfer Destination Bedside Commode Transfer Technique Stand Step Pivot Transfer Ability Level of Assist Maximum Assistance,1 Person Assistance,2 Person Assistance,Use of Upper Extremities Comments Mobility Comments pt in bed and daughter in room. pt stated that she is constipated and feels like she BM is coming. pt agreed to get up and try to use the bedside commode. log roll supine to sit max A x 1-2 and max cues. increase posterior leaning during sitting max A for sitting balance and max cues. increase overall body/trunk extensor guarding due to pain. dependent with scooting to EOB. sit to stand max A x 1-2 and max cues and step transfer to bedside commode max A x 1- 2 and max cues. pt c/o increase pain on low back L>R with L hip pain and numbness. pt c/o increase pain throughout sitting on the commode. pt tends to focus on pain affecting following directions and safety awareness. sit to stand from the bedside commode max A x 2 and max cues. nurse assisted with hygiene care and brief management. pt completed step transfer back to bed using FWW max A x 2 and max cues. log roll bed mobility max A x 2 and max cues. positioned pt in bed. call light and table placed within reach. M5 PT-IP Objective Assessments Start: 04/15/25 12:31 Freq: Status: Active Protocol: Document 04/15/25 12:34 KJ (Rec: 04/15/25 12:50 KJ [id number]) Orientation Orientation/Cognition Level of Alertness Alert Orientation Name,Age,Birthday,Month,Date,Year,Day of Week,Place, Situation Language Function No Deficits Noted Ability Memory Description No Deficits Noted Gross Range of Motion Upper Extremity ROM Assessment Within Functional Limits Lower Extremity ROM Assessment Left Impaired Impairments Limited AROM in hips due to pain Strength Upper Extremity Strength Assessment Within Functional Limits Lower Extremity Strength Hip limited due to pain Knee R WFL, L too painful to measure Ankle WFL Comments Strength Comments Pain most significant in passive ext rot L hip Sensation Assessment Comments Sensation Comments Reports numbness and tingling radiating in the LLE M6 PT-IP Treatment Start: 04/15/25 12:31 Freq: Status: Active Protocol: Document 04/18/25 10:20 AB (Rec: 04/18/25 11:11 AB Desktop) Physical Therapy Treatment Education Education Provided Safety M7 PT-IP Assessment and Plan Start: 04/15/25 12:31 Freq: Status: Active Protocol: Document 04/18/25 10:20 AB (Rec: 04/18/25 11:11 AB Desktop) PT Summary Assessment and Plan Potential Rehabilitation Fair Potential Summary Impairments Pain,ROM,Strength,Balance,Coordination,Sensation,Tone, Cognition,Bed Mobility,Transfers,Gait,Activity Tolerance Progress Towards Slow Progress due to Pain Goals Assessment Summary pt continues to c/o increase LBP L>R, L hip pain and numbness. pt requiring max A x 2 for bed mobility, max A x 1-2 for transfers using fWW. pt unable to tolerate much activity due to pain. pt will benefit from SNF rehab to improve overall strength and function. Goals Bed Mobility Goal Minimal Assistance Transfer Goal Minimal Assistance,Front Wheeled Walker Gait Goal Minimal Assistance,Front Wheel Walker Gait Distance 50 Days to Meet Goals 10 Frequency of Treatment Frequency Of Once a Day Treatment Treatment Plan Physical Therapy Bed Mobility Training,Transfer Training,Gait Training, Treatment Plan Therapeutic Exercise,Balance Retraining,Discharge Planning,Hot or Cold Pack,Neuromuscular Re-ed, Coordination Retraining,Manual Therapy Precautions Lumbar Precautions Log Roll,No Twisting,Limit Bending Recommendations To Nursing Amount of Assist Mechanical Lift Needed Discharge Recommendations PT Discharge SNF Rehab Recommendations Transportation Needs Stretcher/Ambulance at Discharge - PT assist 2
--- NOTE | 2025-04-18 11:58 | PM.PN.1 ---
Subjective Subjective Interval history: 84 yo female admitted 04/15 w/acute vs subacute bilateral sacral insufficiency fxs secondary to a recent fall. She had 2 prior ED visits before this admission and failed outpt treatment. MRI showed possible sacral stenosis just below S1-S2 as well. She has been treated w/oxycodone, dexamethasone, lidocaine patch. She has a hx of constipation as well. Patient reports she had a small bowel movement this morning. She reports that she is overall doing relatively well. Her pain is better controlled. She states she is trying to keep a sense of humor as she is not used to being dependent on other people. She is typically able to mobilize independently. She lives alone at baseline and is able to complete all of her own ADLs. She does have a significant other who also lives independently. She has survived 2 husbands. Exam Vital Signs (past 8 hours): Oxygen Delivery Method Room Air Oxygen Flow Rate 0 Narrative Exam Narrative: GEN: Very pleasant elderly female, Alert and oriented x 3, NAD HEENT:NC, Face symmetric CHEST: Respiratory excursions symmetric, CTAB CV: RRR, no M/R/G ABD: Soft, NT/ND, BT present in all 4 quadrants, no organomegaly or masses EXTR: warm, well perfused, no C/C/E SKIN: warm and dry, no rash NEURO: Alert and oriented x 3, nonfocal Objective Labs 04/17/25 06:27 04/17/25 06:27 Labs: Laboratory Results - last 24 hr 04/17/25 06:27 WBC 10.2 RBC 4.62 Hgb 13.7 Hct 40.0 MCV 86.4 MCH 29.6 MCHC 34.3 RDW 12.5 Plt Count 397 Neut % (Auto) 75.5 H Lymph % (Auto) 16.1 L Ross % (Auto) 7.2 Eos % (Auto) 0.9 L Baso % (Auto) 0.3 Neut # (Auto) 7700 H Lymph # (Auto) 1600 Ross # (Auto) 700 Eos # (Auto) 100 Baso # (Auto) 0 Sodium 137 Potassium 4.3 Chloride 103 Carbon Dioxide 25 BUN 19 H Creatinine 0.66 Estimated GFR > 60 BUN/Creatinine Ratio 28.8 H Glucose 109 H Calcium 9.2 PFSH Social History household members: none Smoking Status: Never smoker alcohol intake: current Assessment & Plan Assessment & Plan narrative: 1. Bilat sacral insufficiency fxs On dex. Lidocaine patch. PRN oxycodone and dilaudid. She has been averaging about 3 doses of IV Dilaudid per day. Will plan to convert to an oral medication at discharge. 2. Constipation On Miralax. She did have a small bowel movement today. 3. Osteoporosis She did have a pathologic fracture secondary to ground level fall. Code status Full Prophy On Lovenox. Dispo Await SNF for rehab. There are no beds at [facility]. [facility] has accepted her and she will be able to transfer there tomorrow Time-Based Coding :: [TOTAL MINUTES] spent with patient and on the chart (including review of chart, obtaining history, exam, reviewing outside data, placing orders, documenting exam and treatment plan, and counseling patient) on [DATE].
[2025-04-18] MEDS: ACETAMINOPHEN 325 MG TABLET 650 MG PO (17:35)
--- NOTE | 2025-04-18 18:26 | PM.DS.1 ---
History of Present Illness History of Present Illness Date Patient Seen: 04/19/25 Chief complaint: Back pain / left hip pain Narrative: Per H&P: The patient was a pleasant 84-year-old female who a fall about a month ago with hip pain. This improved over the next several days. She was had lower back pain and some left leg symptoms for the last week to 10 days. This is resulted in multiple visits to the urgent care and emergency department at [facility]. She would normal x-rays and CT scan of the pelvis there. She escalated in terms of her pain medications over sequential visits from hydrocodone up to oxycodone with the addition recently of dexamethasone and a lidocaine patch. For her 3rd ER visit for pain which he would become intractable let her to be essentially bed-bound her daughter is visiting from [place]. She was brought by ambulance to [facility], treated with IV medication, and discharged. Her out her daughter drove her to this hospital. ED course: MRI of the LS spine was obtained which revealed sacral insufficiency fracture. Discharge Providers Provider Date of admission: 04/15/25 14:54 Discharge Date: 04/19/25 Primary care physician: Claritza CROWLEY Provider Consults: 04/15/25 09:42 Consult to Physical Therapy Evaluate & Treat Comment: Physician Instructions: Evaluate and Treat 04/17/25 12:51 Consult to Pharmacy Routine Comment: high fall risk Discharge provider: Dejah Phan MD Summary Hospital Course Discharge Diagnosis: 1. Bilateral sacral insufficiency fractures 2. Constipation 3. Osteoporosis Hospital Course: 84 yo female admitted 04/15 w/acute vs subacute bilateral sacral insufficiency fxs secondary to a recent fall. She had 2 prior ED visits before this admission and failed outpt treatment. MRI showed possible sacral stenosis just below S1-S2 as well. She has been treated w/oxycodone, dexamethasone, lidocaine patch with good effect. She has a hx of constipation as well. She did have a small bowel movement on April 17 as a result of initiation of MiraLax. PT and OT evaluations were performed with recommendation for [facility] for [facility]hab. She was accepted at [facility] on April 18 with noted bed availability on April 19. Patient is discharging in stable condition. Status at Discharge Cognitive/behavioral status at discharge: at baseline, oriented Overall status at discharge: patient is progressing back to baseline Exam Vital Signs (past 8 hours): Oxygen Delivery Method Room Air Oxygen Flow Rate 0 Narrative Exam Narrative: GEN: Alert and oriented x 3, NAD HEENT:NC, Face symmetric CHEST: Respiratory excursions symmetric, CTAB CV: RRR, no M/R/G ABD: Soft, NT/ND, BT present in all 4 quadrants, no organomegaly or masses EXTR: warm, well perfused, no C/C/E SKIN: warm and dry, no rash NEURO: Alert and oriented x 3, nonfocal Objective Labs 04/19/25 05:41 04/19/25 05:41 [facility] Social History household members: none Smoking Status: Never smoker alcohol intake: current Discharge Plan Discharge Plan Patient Disposition: SNF Transfer to: [facility] Under care of provider: Vivi GROSS Provider Discharge Comment: You were admitted w/uncontrolled pain due to bilateral sacral insufficiency fractures (tailbone fracture d/t osteoporosis). You will continue taking the pain medications as needed. You will stop the steroids after 2 more doses. You will continue the lidocaine patches as long as you need them. Keep taking the Miralax to keep your bowels regular. Return to the ED: Worsening pain, numbness/tingling or decreased control of legs/bowel/bladder Fevers/chills/shortness of breath Inability to hold down food/fluids/medication Discharge orders & Medications Prescriptions: New polyethylene glycol 3350 [Gavilax] 17 gram Powder In Packet 17 gm PO DAILY Qty: 30 0RF oxycodone 5 mg Tablet 5 mg PO Q3H PRN (Reason: Pain, Moderate (4-6)) Qty: 30 0RF Continued acetaminophen 325 mg capsule 650 mg PO Q6H PRN (Reason: pain) PreserVision AREDS 2 CO Q-10 180-49-38-1-5 mg capsule 1 cap PO .qday dexamethasone 2 mg tablet 2 mg PO DAILY Qty: 2 0RF lidocaine 5 % adhesive patch,medicated 1 patch topical DAILY Qty: 5 0RF Rx Instructions: leave on most painful area for up to 12 hrs Discontinued oxycodone 5 mg tablet 5 mg PO 4XD PRN (Reason: pain) meloxicam 7.5 mg tablet 7.5 mg PO BID Follow up/Referrals: ProviderClaritza [Primary Care Provider, Family Practice] Discharge Health Status Multidrug resistant organism: No MDRO Precautions: [place] Diet/Activity/Treatments Diet: Diet as Tolerated and Regular Liquid consistency: Normal/Thin Food texture: Regular Activity: As tolerated Oxygen: N/A Special Rehabilitation Services Reason for rehabilitation: Recovery r/t decondition Rehab type: Physical therapy and Occupational therapy Visit Report/Discharge Packet Instructions: DI for Prescription Opioid Use Stand Alone Forms: Patient Portal/API Discharge Data Primary Care Provider: Claritza Vargas
[2025-04-18 19:45] VITALS: BP 152/72; PULSE 75; RESP 18; TEMP 36.4; O2SAT 95
[2025-04-18] MEDS: REMOVE LIDOCAINE PATCH 1 EACH TOP (20:40)
[2025-04-19 06:51] LABS: Add Manual Diff / Slide Review NO; Hematocrit 38.1 % (36-46); Hemoglobin 12.9 g/dL (12.0-16.0); Lymphocytes Absolute Auto 3100 /uL (1100-4500); Mean Corpuscular HGB Conc 33.8 % (30-36); Mean Corpuscular Hemoglobin 29.5 PG (26-34); Mean Corpuscular Volume 87.3 fL (80-100); Platelet Count 380 X10^3/uL (150-400)
[2025-04-19 07:00] VITALS: BP 132/99; PULSE 66; RESP 18; TEMP 36; O2SAT 96
[2025-04-19 07:01] LABS: Blood Urea Nitrogen 21 mg/dL (7-17); Calcium 9.0 mg/dL (8.4-10.2); Carbon Dioxide 26 mmol/L (22-32); Chloride 104 mmol/L (98-107); Estimated Glomerular Filt Rate > 60 mL/min (>60); Glucose 87 mg/dL (70-99); HEMOLYSIS 36 (0-50); Potassium 4.4 mmol/L (3.4-5.1); Sodium 136 mmol/L (137-145)
[2025-04-19] MEDS: ENOXAPARIN 40 MG/0.4 ML SYRINGE SUBCUT (08:36)
[2025-04-19] MEDS: LIDOCAINE 5% PATCH 1 EACH TOP (08:37)
[2025-04-19] MEDS: SODIUM CHLORIDE 0.9% FLUSH 10 ML IV ×2 (08:40→20:06)
--- NOTE | 2025-04-19 12:27 | CM.DPC ---
DCP SNF Planning: Per MD, pt still had IV dilaudid this AM for ongoing pain management issues and will switch to PO to confirm she can tolerate. PT to work with pt today and try for bedside chair. SW spoke to admissions at [facility] to determine if pt could discharge under her Medicare rather than waiting for [employer] auth that was submitted Sunday and they could likely accept under her Medicare but can confirm more tomorrow Mon when insurance open and administrators back in the office. They confirm they cannot take pt on IV pain meds, will need to tolerate PO. SW met bedside with pt and Dtr and explained role and updated on likely plan of d/c to [facility] tomorrow if she remains stable. Pt states she has been very fearful since her fx and avoidance of pain and concerns with constipation. SW and Dtr encouraged pt with medication before mobility and need for mobility and that fear is a common emotion. They remain agreeable to [facility] at d/c. SW discussed possible option for transport being facility w/c van vs stretcher and uncertain if stretcher would be fully covered by insurance. Pt agreeable to work with PT today to confirm she can still at least sampson into w/c and sit upright for short distance to SNF. Provided pt's IMM and Medicare Rights with likely plan of discharge tomorrow and they acknowledged understanding and appreciative. Updated and [facility]. Plan: SW to follow for plan of [facility] tomorrow Mon 04/20 and to determine w/c van vs stretcher pending pt's progress with PT today. DANIEL Kong
[2025-04-19] MEDS: ACETAMINOPHEN 325 MG TABLET 650 MG PO ×2 (13:36→20:05)
--- NOTE | 2025-04-19 14:30 | PT.IPTN ---
Current Diagnoses Other osteoporosis with current pathological fracture, other site, initial encounter for fracture (04/15/25) Physical Therapy Treatment Note M2 PT-IP Current Condition Start: 04/15/25 12:31 Freq: Status: Active Protocol: Document 04/15/25 12:34 KJ (Rec: 04/15/25 12:50 KJ [id number]) Physical Therapy Current Condition Current Condition Evaluation Date 04/15/25 Treatment Diagnosis Impaired mobility Onset Date 03/30/25 M3 PT-IP Subjective Start: 04/15/25 12:31 Freq: Status: Active Protocol: Document 04/19/25 14:23 KJ (Rec: 04/19/25 14:29 KJ [id number]) Subjective Physical Therapy Visit Type Type Treatment Note Visit Start Time 13:07 Visit Stop Time 14:21 Physical Therapy Visit Comments Patient Comments Afraid of pain. Therapy Pain Assessment Pain When Pain Assessed After Treatment Location Left Lower Back Pain Behaviors Facial Grimacing M4 PT-IP Mobility and Gait Start: 04/15/25 12:31 Freq: Status: Active Protocol: Document 04/19/25 14:23 KJ (Rec: 04/19/25 14:29 KJ [id number]) PT-Bed Mobility Assessment Rolling Type of Rolling Log Rolling,Roll to Left Level of Assist Minimal Assistance Supine to Sit Supine to Sit Moderate Assistance PT-Transfer Assessment Sit to and From Stand Sit to and from Total Assistance Stand Equipment Transfer Assistive Mechanical Lift Device Transfers Transfer Destination Chair Transfer Ability Level of Assist Total Assistance Comments Mobility Comments Attempted sitting at eob. Pt was unable to tolerate due to pain. Used overhead lift to transfer pt to chair. Pt tolerated mechanical lift and sitting in chair. Used sit to stand lift to take pt to toilet. Pt was able to have bowel movement sitting on toilet w/min c/o pain. Sit to stand lift back to chair. M5 PT-IP Objective Assessments Start: 04/15/25 12:31 Freq: Status: Active Protocol: Document 04/19/25 14:23 KJ (Rec: 04/19/25 14:29 KJ [id number]) Orientation Orientation/Cognition Comments Pt has trouble making decisions. M6 PT-IP Treatment Start: 04/15/25 12:31 Freq: Status: Active Protocol: Document 04/19/25 14:23 KJ (Rec: 04/19/25 14:29 KJ [id number]) Physical Therapy Treatment Other Treatments Other Treatment Educated pt and daughter on use of mechanical lifts for Performed transfers, including both the overhead lift and the sit to stand lift. Reviewed exercises: in addition to those above: post pelvic tilt, bridges, SAQS w/post pelvic tilt. Provided verbal, tactile, and visual cuing for these exercises. Pt required much encouragement and cuing. M7 PT-IP Assessment and Plan Start: 04/15/25 12:31 Freq: Status: Active Protocol: Document 04/19/25 14:23 KJ (Rec: 04/19/25 14:29 KJ [id number]) PT Summary Assessment and Plan Potential Rehabilitation Good Potential Status of Condition Evolving at Evaluation Summary Impairments Pain,Bed Mobility,Transfers,Gait Assessment Summary fear of pain is impeding progress more than the pain itself. pt needs to take initiative for a good recovery Recommendations To Nursing Amount of Assist Mechanical Lift,Power Sit-Stand Needed Discharge Recommendations Transportation Needs Wheelchair/Cabulance at Discharge
[2025-04-19 19:00] VITALS: BP 150/82; PULSE 83; RESP 16; TEMP 36.4; O2SAT 96
[2025-04-19] MEDS: REMOVE LIDOCAINE PATCH 1 EACH TOP (20:08)
[2025-04-20] MEDS: LIDOCAINE 5% PATCH 1 EACH TOP (08:08)
[2025-04-20] MEDS: ENOXAPARIN 40 MG/0.4 ML SYRINGE SUBCUT (08:08)
[2025-04-20] MEDS: ACETAMINOPHEN 325 MG TABLET 650 MG PO ×2 (08:08→14:06)
[2025-04-20] MEDS: SODIUM CHLORIDE 0.9% FLUSH 10 ML IV ×2 (08:10→20:48)
[2025-04-20 08:17] VITALS: BP 157/83; PULSE 72; RESP 15; TEMP 36.2; O2SAT 99
--- NOTE | 2025-04-20 09:09 | P.PN_ITS ---
Exam Vital Signs (past 8 hours): - 04/21/25 08:00 Temperature 97.4 F L Pulse Rate 71 Respiratory Rate 16 Blood Pressure 132/73 Pulse Oximetry 98 Oxygen Flow Rate 0 Oxygen Delivery Method Room Air Oxygen Flow Rate 0 Objective Labs 04/19/25 05:41 04/19/25 05:41 [facility] Social History household members: none Smoking Status: Never smoker alcohol intake: current Assessment & Plan Time-Based Coding :: [TOTAL MINUTES] spent with patient and on the chart (including review of chart, obtaining history, exam, reviewing outside data, placing orders, documenting exam and treatment plan, and counseling patient) on [DATE].
--- NOTE | 2025-04-20 10:43 | PM.PN.1 ---
Subjective Subjective Interval history: Summary: S: She had a lumbar pelvic pain today when trying to reposition. She has been out of bed minimally. She denies any dyspnea, or other concerns other than constipation. O: NAD, alert and oriented. Fluent speech. Lungs are clear, normal rate and effort. Heart is regular, no murmur gallop or rub. Abdomen is soft, non distended. Extremities are free of edema. A/P: -continue pain control measures, and physical therapy. We will continue her bowel program as well. -possible discharge to [facility] nursing [facility] later today. Exam Vital Signs (past 8 hours): - 04/20/25 08:17 Temperature 97.1 F L Pulse Rate 72 Respiratory Rate 15 Blood Pressure 157/83 H Pulse Oximetry 99 Oxygen Flow Rate 0 Oxygen Delivery Method Room Air Oxygen Flow Rate 0 Objective Labs 04/19/25 05:41 04/19/25 05:41 [facility] Social History household members: none Smoking Status: Never smoker alcohol intake: current Assessment & Plan Time-Based Coding :: [TOTAL MINUTES] spent with patient and on the chart (including review of chart, obtaining history, exam, reviewing outside data, placing orders, documenting exam and treatment plan, and counseling patient) on [DATE].
--- NOTE | 2025-04-20 11:55 | PT.IPTN ---
Current Diagnoses Other osteoporosis with current pathological fracture, other site, initial encounter for fracture (04/15/25) Physical Therapy Treatment Note M2 PT-IP Current Condition Start: 04/15/25 12:31 Freq: Status: Active Protocol: Document 04/20/25 11:13 SP (Rec: 04/20/25 16:31 SP [id number]) Physical Therapy Current Condition Current Condition Evaluation Date 04/15/25 Treatment Diagnosis Impaired mobility Onset Date 03/30/25 M3 PT-IP Subjective Start: 04/15/25 12:31 Freq: Status: Active Protocol: Document 04/20/25 11:13 SP (Rec: 04/20/25 16:31 SP [id number]) Subjective Physical Therapy Visit Type Type Treatment Note Visit Start Time 11:13 Visit Stop Time 11:55 Notes SPTA assisted with vital assessment and 2nd person assist during transfer and pericare with patient's permission and under direct instruction of BIENVENIDO Villatoro. Vitals: supine BP 167/81, 127/40 nonsyptomatic reclined in chair end tx. Physical Therapy Visit Comments Patient Comments Pt willing to mobilize after 2nd attempt, reports afraid of pain. Therapy Pain Assessment Pain When Pain Assessed During Mobility Pain Present Pain Present Pain Reported Location Left Hip Intensity 1 Scale Used at rest, 10/10 with mobility Description Acute,Spasm,Throbbing,Tingling,With Movement Pain Behaviors Facial Grimacing,Guarding,Holding Area,Moaning, Restlessness,Wincing Pain Management Distraction,Elevation,Modification of Treatment,Re- Techniques positioning,Timing of Activity with Medications M4 PT-IP Mobility and Gait Start: 04/15/25 12:31 Freq: Status: Active Protocol: Document 04/20/25 11:13 SP (Rec: 04/20/25 16:31 SP [id number]) PT-Bed Mobility Assessment Rolling Type of Rolling Log Rolling,Roll to Left Level of Assist Contact Guard Assistance,Minimal Assistance,1 Person Assistance Supine to Sit Supine to Sit Maximum Assistance,1 Person Assistance,Bedrails Scooting Scooting to Edge of Minimal Assistance Bed PT-Transfer Assessment Sit to and From Stand Sit to and from Moderate Assistance,2 Person Assistance,Use of Upper Stand Extremities Equipment Transfer Assistive Gait Belt Device Orthotic/Prosthetic No Devices or Brace: Transfers Transfer Destination Chair,Bedside Commode Transfer Technique Squat Pivot Transfer Ability Level of Assist Moderate Assistance,2 Person Assistance,Use of Upper Extremities Comments Mobility Comments Pt required Max A x1 during bed mobility to EOB for trunk righting, Mod A x2 for trunk support, redirection of BUEs on opposite surface bed>BSC>chair and support for trunk via gait belt. Pt c/o pain L hip during squat pivot transfer and Mod A for trunk support seated on BSC due to pain wt shifting off to R to unweight L hip. Provided covered bench cushion under B feet due to feet unable to contact floor seated fully back. NEWS COPY EDITOR instructed BLEs AROM ankle pumps and heel slide AROM pre mobility. Pt was able to complete BM on commode ( after noted BM on periwick, notified nursing). Mod A for trunk support by NEWS COPY EDITOR while SPTA assisted fully pericare. Pt was up in chair end of tx reclined with BLEs elevated, call light and all needs in reach before left room, nursing provided chair alarm. Family in room observed tx. Gait Assessment Comments Gait Comments squat pivot transfer only Mod x2 PT-Balance Assessment Sitting Balance and Reactions Static Sitting Fair Balance Ability Dynamic Sitting Poor Balance Ability Standing Balance and Reactions Static Standing Poor Balance Ability Dynamic Standing Poor Balance Ability Device Used SPTransfer M5 PT-IP Objective Assessments Start: 04/15/25 12:31 Freq: Status: Active Protocol: Document 04/19/25 14:23 KJ (Rec: 04/19/25 14:29 KJ [id number]) Orientation Orientation/Cognition Comments Pt has trouble making decisions. M6 PT-IP Treatment Start: 04/15/25 12:31 Freq: Status: Active Protocol: Document 04/20/25 11:13 SP (Rec: 04/20/25 16:31 SP [id number]) Physical Therapy Treatment Exercises Exercises Ankle Pumps,Heel Slides Education Education Provided Safety M7 PT-IP Assessment and Plan Start: 04/15/25 12:31 Freq: Status: Active Protocol: Document 04/20/25 11:13 SP (Rec: 04/20/25 16:31 SP [id number]) PT Summary Assessment and Plan Potential Rehabilitation Good Potential Status of Condition Evolving at Evaluation Summary Impairments Pain,ROM,Strength,Balance,Bed Mobility,Transfers,Gait, Activity Tolerance Assessment Summary Pt was able to mobilize better this tx Max A x1 bed mob , Mod A x2 squat pivot transfer bed>BSA>chair, trunk support seated on BSA due to pain L hip, she has fear of pain is impeding progress. Pt required encouragement for mobility and will help with joint mobility. Recommending SNF for progress strength and mobility when medically cleared. Goals Bed Mobility Goal Minimal Assistance Transfer Goal Minimal Assistance,Front Wheeled Walker Gait Goal Minimal Assistance,Front Wheel Walker Gait Distance 50 Days to Meet Goals 10 Frequency of Treatment Frequency Of Once a Day Treatment Treatment Plan Physical Therapy Bed Mobility Training,Transfer Training,Gait Training, Treatment Plan Therapeutic Exercise,Balance Retraining,Discharge Planning,Hot or Cold Pack,Neuromuscular Re-ed, Coordination Retraining,Manual Therapy Other Continue log rolling, supine to sit. Progress to Recommendations and transfers and progress gait if able. Next Treatment Focus Precautions Lumbar Precautions Log Roll,No Twisting,Limit Bending Recommendations To Nursing Amount of Assist 2 Person Assist Needed Discharge Recommendations PT Discharge SNF Rehab Recommendations Transportation Needs Wheelchair/Cabulance at Discharge - PT assist 2
--- NOTE | 2025-04-20 12:15 | CM.DPC ---
Addendum entered by DANIEL Kong 04/20/25 15:32: ADD: Call from [employer] [phone] stating [facility] is not contracted with their insurance company and currently not willing to do One Time Auth for [facility] and next closest SNF they would auth is [facility]. He reviewed the clinicals and feels he could give an auth for SNF for discharge tomorrow 04/21 if [facility] can accept. Called [facility] and faxed referral and provided Julio's contact at [facility] and [place] confirms they have opening and can accept the pt tomorrow likely around 1100 transport and called Jul[employer] and received a verbal auth for SNF for acceptance tomorrow . SW met bedside with pt and Dtr and updated on above and they were hopeful for closer SNF as Dtr lives in [place] but discussed currently pt stable for discharge to SNF and have accepting SNF contracted with her insurance so they are agreeable with d/c to [facility] tomorrow and might pursue SNF transfer if another SNF contracted that is closer to Dtr once pt more stable for longer transport. Currently agreeable with [facility] at discharge. BF Original Note: DCP SNF Cont: Per MD, pt likely stable for discharge to SNF once auth secured, transitioned to po pain meds and seems to be tolerating. Per PT yesterday, able to get pt to EOB and then needed sling to get to bedside chair and used sit to stand but pt able to have bm on commode and tolerate sitting in chair. Recommending w/c van for transport to SNF across the street. IDA called [facility] and they will call [employer] this morning to confirm if they have auth before they can determine if pt can come under her Medicare but holding transport time around 1500 in case they get insurance auth for acceptance today. IDA met bedside with pt and Dtr as [facility] about to work with pt again today and updated on above and they remain agreeable with d/c plan today if [facility] can accept. Updated RN, speeder tender and MD. Plan: SW to follow closely with [facility] for insurance auth for discharge to SNF today vs tomorrow via facility van (pt will need to be medicated prior to d/c and likely use sampson/sling. DANIEL Kong
--- NOTE | 2025-04-20 14:58 | DIET.CONS ---
Dietary Consultation Note Admission Date: 04/15/2025 14:54 Assessment: 84 y F admitted for sacral fractures. Dietitian screened for LOS. EMR reviewed. PO intakes: majority 75-100%, avg 70%. DMF reviewed for meal composition. Ht: 157.48 cm Wt: 67.132 kg BMI: 27.1 UBW: no wt hx in EMR, MNA score indicating no recent weight loss Last BM: 04/20/25 (04/20/25 13:23) MNA: 14 Michael Score: 18 Diet: 04/15/25 Dinner General (Regular) Diet Diet Modifications: Nutrition Percent Meal Consumed 75% 04/20/25 13:23 Percent Meal Consumed 75% 04/20/25 09:11 Percent Meal Consumed 100% 04/19/25 18:00 Percent Meal Consumed 100% 04/19/25 13:02 Percent Meal Consumed 75% 04/19/25 09:20 Percent Meal Consumed 75% 04/18/25 18:00 Labs: RBC 4.37 X10^6/uL (4.0-5.2) 04/19/25 05:41 Hgb 12.9 g/dL (12.0-16.0) 04/19/25 05:41 Hct 38.1 % (36-46) 04/19/25 05:41 Creatinine 0.75 mg/dL (0.52-1.04) 04/19/25 05:41 Nutrition Diagnosis: none Monitoring/Evaluations: po intakes Electronically Signed by: Jerrica Pierce 04/20/25 14:58 Clinical Dietitian [address] [address]
[2025-04-20 19:00] VITALS: BP 124/67; PULSE 83; RESP 15; TEMP 36.7; O2SAT 97
[2025-04-20] MEDS: REMOVE LIDOCAINE PATCH 1 EACH TOP (20:50)
[2025-04-21] MEDS: ACETAMINOPHEN 325 MG TABLET 650 MG PO ×2 (01:47→11:04)
[2025-04-21 08:00] VITALS: BP 132/73; PULSE 71; RESP 16; TEMP 36.3; O2SAT 98
[2025-04-21] MEDS: LIDOCAINE 5% PATCH 1 EACH TOP (08:20)
[2025-04-21] MEDS: ENOXAPARIN 40 MG/0.4 ML SYRINGE SUBCUT (08:21)
[2025-04-21] MEDS: SODIUM CHLORIDE 0.9% FLUSH 10 ML IV (08:21)
--- NOTE | 2025-04-21 09:06 | P.DS_ITS ---
History of Present Illness History of Present Illness Chief complaint: Back pain / left hip pain Narrative: The patient was a pleasant 84-year-old female who a fall about a month ago with hip pain. This improved over the next several days. She was had lower back pain and some left leg symptoms for the last week to 10 days. This is resulted in multiple visits to the urgent care and emergency department at [facility]. She would normal x-rays and CT scan of the pelvis there. She escalated in terms of her pain medications over sequential visits from hydrocodone up to oxycodone with the addition recently of dexamethasone and a lidocaine patch. For her 3rd ER visit for pain which he would become intractable let her to be essentially bed-bound her daughter is visiting from [place]. She was brought by ambulance to [facility], treated with IV medication, and discharged. Her out her daughter drove her to this hospital. ED course: MRI of the LS spine was obtained which revealed sacral insufficiency fracture. Discharge Providers Provider Date of admission: 04/15/25 14:54 Discharge Date: 04/21/25 Primary care physician: Claritza CROWLEY Provider Consults: 04/15/25 09:42 Consult to Physical Therapy Evaluate & Treat Comment: Physician Instructions: Evaluate and Treat 04/17/25 12:51 Consult to Pharmacy Routine Comment: high fall risk Discharge provider: Tarik Coker MD Summary Hospital Course Discharge Diagnosis: Discharge Diagnosis: 1. Bilateral sacral insufficiency fractures 2. Constipation 3. Osteoporosis Hospital Course: 84 yo female admitted 04/15 w/acute vs subacute bilateral sacral insufficiency fxs secondary to a recent fall. She had 2 prior ED visits before this admission and failed outpt treatment. MRI showed possible sacral stenosis just below S1- S2 as well. She has been treated w/oxycodone, dexamethasone, lidocaine patch with good effect. She has a hx of constipation as well. She did have a small bowel movement on April 17 as a result of initiation of MiraLax. PT and OT evaluations were performed with recommendation for [facility]dc facility for rehab. She was accepted at [facility] on April 18 with noted bed availability on April 19. Discharge was delayed to April 21 with no interval new medical issues identified. Patient is discharging in stable condition. Status at Discharge Cognitive/behavioral status at discharge: oriented Functional status at discharge: bed bound Overall status at discharge: patient is not back to baseline Time Spent with Patient Time spent: Greater than 30 minutes Exam Vital Signs (past 8 hours): - 04/21/25 08:00 Temperature 97.4 F L Pulse Rate 71 Respiratory Rate 16 Blood Pressure 132/73 Pulse Oximetry 98 Oxygen Flow Rate 0 Oxygen Delivery Method Room Air Oxygen Flow Rate 0 Narrative Exam Narrative: NAD, alert and oriented. Fluent speech. Lungs are clear, normal rate and effort. Heart is regular, no murmur gallop or rub. Abdomen is soft, non distended. Extremities are free of edema. Objective Imaging MR LS spine: : Radiologist's impression: MRI LS Spine: : Radiologist's impression: Alignment and Curvature: Trace anterolisthesis of L4 on L5. Bone Marrow: No lumbar compression fractures. There are bilateral acute or subacute sacral insufficiency fractures with a horizontal S2 component. Suspect possible sacral stenosis just below the level of S1-S2. Spinal Cord: Conus medullaris terminates at the L1-L2 level. Visualized cord demonstrates normal signal and size. Paraspinous Soft Tissues: No paravertebral masses. T12-L1: No canal stenosis or foraminal stenosis. L1-L2: No canal stenosis or foraminal stenosis. L2-L3: Disc bulge. Facet hypertrophy. No canal stenosis or foraminal stenosis. L3-L4: Disc bulge. Facet hypertrophy. No canal stenosis or foraminal stenosis. L4-L5: Trace anterolisthesis. Prominent facet hypertrophy. Moderate canal stenosis. Moderate right foraminal narrowing and mild to moderate left foraminal narrowing. L5-S1: Disc bulge. Facet hypertrophy. No canal stenosis or significant foraminal stenosis. IMPRESSION: 1. Acute or subacute bilateral sacral insufficiency fractures with a horizontal component at the top of S2. 2. There appears to be a degree of sacral canal stenosis just below the level of S1-S2. 3. 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 Labs 04/19/25 05:41 04/19/25 05:41 COUNTS INCLUDE 234 BEDS AT THE [facility] Social History household members: none Smoking Status: Never smoker alcohol intake: current Discharge Assessment & Plan Assessment and Plan Assessment: 1. Bilateral sacral stress fractures, active. Discharge Plan Discharge Plan Patient Disposition: SNF Transfer to: [facility] Under care of provider: Vivi Jenkins) Provider Discharge Comment: You were admitted w/uncontrolled pain due to bilateral sacral insufficiency fractures (tailbone fracture d/t osteoporosis). You will continue taking the pain medications as needed. You will stop the steroids after 2 more doses. You will continue the lidocaine patches as long as you need them. Keep taking the Miralax to keep your bowels regular. Return to the ED: Worsening pain, numbness/tingling or decreased control of legs/bowel/bladder Fevers/chills/shortness of breath Inability to hold down food/fluids/medication Discharge orders & Medications Prescriptions: New polyethylene glycol 3350 [Gavilax] 17 gram Powder In Packet 17 gm PO DAILY Qty: 30 0RF oxycodone 5 mg Tablet 5 mg PO Q3H PRN (Reason: Pain, Moderate (4-6)) Qty: 30 0RF Continued acetaminophen 325 mg capsule 650 mg PO Q6H PRN (Reason: pain) PreserVision AREDS 2 CO Q-10 [id number] mg capsule 1 cap PO .qday dexamethasone 2 mg tablet 2 mg PO DAILY Qty: 2 0RF lidocaine 5 % adhesive patch,medicated 1 patch topical DAILY Qty: 5 0RF Rx Instructions: leave on most painful area for up to 12 hrs Discontinued oxycodone 5 mg tablet 5 mg PO 4XD PRN (Reason: pain) meloxicam 7.5 mg tablet 7.5 mg PO BID Follow up/Referrals: ProviderClaritza [Primary Care Provider, Family Practice] Discharge Health Status Multidrug resistant organism: No MDRO Precautions: [place] Diet/Activity/Treatments Diet: Diet as Tolerated and Regular Liquid consistency: Normal/Thin Food texture: Regular Activity: As tolerated Oxygen: N/A Special Rehabilitation Services Reason for rehabilitation: Recovery r/t decondition Rehab type: Physical therapy and Occupational therapy Visit Report/Discharge Packet Instructions: Sacral Stress Fracture, DI for Prescription Opioid Use Stand Alone Forms: Patient Portal/API Discharge Data Primary Care Provider: Claritza Vargas
--- NOTE | 2025-04-21 10:46 | CM.DPC ---
DCP Cont. Reviewed EMR and team rounds for pt's medical status and updates. [facility] They will transport her at 11:30am. All d/c clinicals have been faxed. No further CM d/c needs are identified at this time.
--- NOTE | 2025-04-21 11:28 | CM.DPNOTE ---
DCP Note per provider cleared for DC to [facility] today. ELVIA Mcclure KINDLY agreed to email Adrianna at [facility] scripts/meds/PASRR/dc summary/other requested clinicals. 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 PERISHABLE FREIGHT INSPECTOR provided RN report number and updated ED SPECIAL EDUCATION TEACHER. per previous CM notes, pt already aware. P: dc today to [facility] today at 11am via WC van. no further CM needs at this time. will continue to follow as needed DANIEL Holguin
--- NOTE | 2025-04-21 11:46 | PC.NURSE ---
D/c packet assembled and given to transportation. IV removed. Report given to RN at [facility].
== END 2025-04-21 11:10 | DRG 544 ==
LOC: ED 14:49 → AC 14:55
PROVIDERS: Family Medicine; Admitting Provider Hospitalist; Emergency Provider Emergency Medicine; Referring Provider Emergency Medicine; Visit Provider Hospitalist
DX: M80.08XA Age-related osteoporosis with current pathological fracture, vertebra(e), initial encounter for fracture (principal); K59.00 Constipation, unspecified
CPT/HCPCS: 36415; 72148; 80048; 80053; 85025; 97110; 97162; 97530; 99284; J1171; J1650